=== PATIENT | female | born 1985 | race Caucasian/White ===

== ENCOUNTER 2018-03-11 21:05 | Inpatient (IN) | payer BC ==
[2018-03-11] MEDS ORDERED: LACTATED RINGERS 1,000 ML IV ONE (21:25)
[2018-03-11] MEDS ORDERED: CALCIUM CHLORIDE 500 MG in SODIUM CHLORIDE 0.9% 50 ML IVPB ONE (21:25)
[2018-03-11] MEDS ORDERED: MAGNESIUM SULFATE-WATER PMX 4 GM in WATER FOR INJECTION 1 50ML.BAG IVPB STA (21:25)
[2018-03-11] MEDS ORDERED: LACTATED RINGERS 1,000 ML IV SCH ×3 (21:30→22:45)
[2018-03-11] MEDS ORDERED: BETAMET ACET-BETAMETH SOD PHOS 6 MG/ML VIAL IM SCH (21:30)
[2018-03-11] MEDS ORDERED: MAGNESIUM SULFATE-WATER PMX 20 GM in WATER FOR INJECTION 1 500ML.BAG IV SCH (21:30)
[2018-03-11] MEDS ORDERED: AMPICILLIN 2,000 MG in SODIUM CHLORIDE 0.9% 100 ML IVPB STA (21:46)
[2018-03-11] MEDS ORDERED: CARBOPROST TROMETHAMINE 250 MCG/ML 1 ML AMP IM PRN (22:43)
[2018-03-11] MEDS ORDERED: LIDOCAINE 1% INJ 10MG/ML (20 ML MDV) SQ PRN (22:43)
[2018-03-11] MEDS ORDERED: TERBUTALINE 1 MG/ML VIAL SQ PRN (22:43)
[2018-03-11] MEDS ORDERED: METHYLERGONOVINE 0.2 MG/ML 1 ML AMP IM PRN (22:43)
[2018-03-11] MEDS ORDERED: OXYTOCIN 10 UNIT/ML 1 ML VIAL IM PRN (22:43)
[2018-03-11 22:55] LABS: Basophils % (A) 0 %; Eosinophils # (A) 0.1 k/uL (0-0.7); Eosinophils % (A) 1 %; HCT 37.5 % (34.0-46.0); HGB 12.3 gm/dL (11.4-16.0); Lymphocytes # (A) 2.4 k/uL (1.0-4.8); Lymphocytes % (A) 17 %; MCH 30.3 pg (25.0-35.0); MCHC 32.8 g/dL (31.0-37.0); MCV 92.5 fL (80.0-100.0); Mean Platelet Volume 7.9; Monocytes # (A) 0.6 k/uL (0-1.0); Monocytes % (A) 4 %; Neutrophils # (A) 10.8 k/uL (1.3-7.7); Neutrophils % (A) 76 %; Platelet Count 294 k/uL (150-450); RBC 4.06 m/uL (3.80-5.40); RDW 13.2 % (11.5-15.5); WBC 14.2 k/uL (3.8-10.6)
[2018-03-11] MEDS ORDERED: ROPIVACAINE 100 MG, fentaNYL (PF) 200 MCG in SODIUM CHLORIDE 0.9% 76 ML EPIDURAL ONE (23:45)
[2018-03-12] MEDS ORDERED: LIDOCAINE 0.5% (PF) 5 MG/ML (50 ML SDV) IM STA (00:43)
[2018-03-12] MEDS ORDERED: LIDOCAINE 1% INJ 10MG/ML (20 ML MDV) IM STA (00:43)
[2018-03-12] MEDS ORDERED: diphenhydrAMINE 50 MG CAP PO PRN (01:01)
[2018-03-12] MEDS ORDERED: HYDROcodone/APAP 7.5-325MG 1 EACH TAB PO PRN (01:01)
[2018-03-12] MEDS ORDERED: WITCH HAZEL 1 EACH MED..PAD TOPICAL PRN (01:01)
[2018-03-12] MEDS ORDERED: ZOLPIDEM 5 MG TAB PO PRN (01:01)
[2018-03-12] MEDS ORDERED: SIMETHICONE 80 MG CHEWABLE PO PRN (01:01)
[2018-03-12] MEDS ORDERED: diphenhydrAMINE 50 MG/ML 1 ML VIAL IVP PRN ×2 (01:01)
[2018-03-12] MEDS ORDERED: HYDROCORTISONE 2.5% RECTAL CREAM 30 GM TUBE RECTAL PRN (01:01)
[2018-03-12] MEDS ORDERED: diphenhydrAMINE 25 MG CAP PO PRN (01:01)
[2018-03-12] MEDS ORDERED: LANOLIN CREAM 5 GM TUBE TOPICAL PRN (01:01)
[2018-03-12] MEDS ORDERED: HYDROcodone/APAP 5-325MG 1 EACH TAB PO PRN (01:01)
[2018-03-12] MEDS ORDERED: ACETAMINOPHEN TAB 325 MG TAB PO PRN (01:01)
[2018-03-12] MEDS ORDERED: BENZOCAINE/MENTHOL SPRAY 1 GM/SPRAY AEROSOL TOPICAL PRN (01:01)
--- NOTE | 2018-03-12 01:01 | P.HPOB ---
History of Present Illness H&P Date: 03/11/18 Chief Complaint: IUP @ 30 3/7 weeks, PTL This is a 33-year-old 1 para 0 at 30-3/7 weeks that presented to labor and delivery with complaints of painful contractions. Patient stated she noted crampiness throughout the day and early in the evening they were starting to get worse therefore she came to triage. Patient denies loss of fluid or vaginal bleeding. She is uncomfortable and tearful with contractions. Patient has been receiving routine care since 7 weeks of gestation. Estimated date of confinement of May 17 is based on a 7 week ultrasound. Of note patient is a history of a LEEP and on 20 week ultrasound cervix is noted to be greater than 3 cm. On blood work patient had a blood type of O+, rubella immune, hepatitis B surface antigen negative, RPR negative, HIV negative she did undergo genetic screening with [employer] which revealed a normal male fetus. Review of Systems Constitutional: Denies chills, Denies fatigue, Denies fever Ears, nose, mouth and throat: Denies hoarseness Cardiovascular: Denies edema, Denies leg edema Respiratory: Denies cough, Denies dyspnea Gastrointestinal: Denies constipation, Denies diarrhea, Denies nausea, Denies vomiting Genitourinary: Reports Psychiatric: Denies anxiety, Denies depression Medications and Allergies Allergies Allergy/AdvReac Type Severity Reaction Status Date / Time sulfamethoxazole Allergy Rash/Hives Verified 03/11/18 21:25 [From Bactrim] trimethoprim [From Bactrim] Allergy Rash/Hives Verified 03/11/18 21:25 Exam Osteopathic Statement: *. No significant issues noted on an osteopathic structural exam other than those noted in the History and Physical/Consult. Intake and Output 03/11/18 03/11/18 03/11/18 06:59 14:59 22:59 Other: Weight 75.75 kg Targeted physical exam was completed on this date in general this is a well- developed well-nourished female, uncomfortable with contractions. Heart is noted to have regular rate and rhythm lungs are clear to auscultation bilaterally abdomen was noted gravid and appropriate for gestational age. heart tones are noted to be reassuring with moderate variability. Patient is known to be adalid every 5 minutes. On vaginal exam the cervix is noted to be fingertip/100%/-1 and vertex presentation confirmed by ultrasound. Assessment and Plan (1) 30 weeks gestation of Current Visit: Yes Status: Acute Code(s): Z3A.30 - 30 WEEKS GESTATION OF SNOMED Code(s): 95050720 (2) labor Current Visit: Yes Status: Acute Code(s): O60.00 - LABOR WITHOUT DELIVERY, UNSPECIFIED TRIMESTER SNOMED Code(s): 0520437 Plan: We'll start IV fluids, steroids, antibiotics, and magnesium sulfate. Given how uncomfortable she has we'll observe and stabilized patient before considering transfer given it is 1 hour to closest NICU facility. I feel she is close to delivery and we will monitor closely.
--- NOTE | 2018-03-12 01:01 | P.PROBDLV ---
Vaginal Delivery Note - . Vaginal Delivery Note: This is a 33-year-old 1 para 0 at 30-3/7 weeks that presented to labor and delivery with regular painful contractions. Estimated due date was May 17 based on a 7 week ultrasound. Patient was started on magnesium sulfate an attempt to stop the contractions this attempt failed patient was found be 4-5 cm therefore she was placed in the labor room and an epidural was performed by anesthesia. Patient progressed to complete amniotomy was performed and clear fluid was obtained. Patient began pushing and had a normal spontaneous vaginal delivery of a viable male at oh 36, weight of 3 lbs. 12 oz. with Apgars of 9 and 9 at one and 5 minutes respectfully. Afterwards the cord was doubly clamped and cut and the infant was handed off to the waiting pasteurizing machine operator given gestational age. The placenta was then spontaneously delivered intact with a three-vessel cord being noted. Inspection the patient's vaginal vault revealed bilateral lateral labial lacerations the left labia was noted to be bleeding therefore was repaired with 4-0 chromic in a usual fashion. The right labial laceration was hemostatic and was not repaired. The rest the vaginal vault was noted to be intact. The uterus was noted to be firm and below the umbilicus at this time. Estimated blood loss 200 mL Mother tolerated delivery well and is resting comfortably, infant is being watched closely by the efflux in the special care nursery and will be transferred to children[facility] when the transport team arise given gestational age
[2018-03-12] MEDS ORDERED: OXYTOCIN 20 UNITS/1000 ML NS 1,000 ML IV SCH (01:15)
[2018-03-12] MEDS ORDERED: AMPICILLIN 1,000 MG in SODIUM CHLORIDE 0.9% 50 ML IVPB SCH (02:00)
[2018-03-12] MEDS: IBUPROFEN 600 MG TAB PO PRN ×2 (02:46→09:49)
[2018-03-12 03:30] VITALS: BMI 24.6
[2018-03-12] MEDS ORDERED: SENNOSIDES-DOCUSATE SODIUM 1 EACH TAB PO SCH (08:00)
[2018-03-12 08:41] VITALS: RESP 18
--- NOTE | 2018-03-12 09:48 | P.DS ---
Providers Date of admission: 03/11/18 22:45 Expected date of discharge: 03/12/18 Attending physician: Dorothy Hewitt Primary care physician: Dorothy Hewitt - Discharge Diagnosis(es) (1) 30 weeks gestation of Current Visit: Yes Status: Acute (2) labor Current Visit: Yes Status: Acute (3) delivery Current Visit: Yes Status: Acute (4) Status post normal vaginal delivery Current Visit: Yes Status: Acute Hospital Course: This is a 33-year-old 1 para 0 that presented to labor and delivery last evening with complaints of regular painful contractions at 30-2/7 weeks of gestation. Patient's estimated due date was May 17 based on a seven-week ultrasound. Patient was noted to be in active labor and unstable for transfer therefore the decision was made to admit the patient to labor and delivery she was requesting epidural anesthesia for pain control. Patient quickly progressed to complete began pushing and had a normal spontaneous vaginal delivery of a viable male infant weight of 6 lbs. 12 oz. with Apgars of 9 and 9 at one and 5 minutes respectively. was noted have a spontaneous cry and was doing well up to transfer to [facility]. Patient's course has been uneventful so far. She is anxious to leave to go and see her . She is ambulating and voiding without difficulty. She is tolerating a regular diet without nausea or vomiting. She states her lochia is minimal. Her pain is well-controlled with oral medications. We will plan on discharge home this morning. Plan - Discharge Summary New Discharge Prescriptions: No Action No Known Home Medications Discharge Medication List No Known Home Medications 03/12/18 [History] Follow up Appointment(s)/Referral(s): Dorothy Hewitt DO [Primary Care Provider] - 1 Week Patient Instructions/Handouts: Expression, Collection and Storage of Breast Milk (DC), Vaginal Delivery (DC) Discharge Disposition: HOME SELF-CARE
[2018-03-12 16:33] VITALS: BP 110/62; PULSE 72; TEMP 98.2
== END 2018-03-12 16:00 | disposition home or self-care (01) | DRG 807 ==
LOC: FBPOP 21:05 → 4FBP 22:45
PROVIDERS: ADMIT Obstetrics & Gynecology Obstetrics; ATTEND Obstetrics & Gynecology Obstetrics
PROC: 00HU33Z Insertion of Infusion Device into Spinal Canal, Percutaneous Approach (ICD-10-PCS; 2018-03-11)
PROC: 3E0R3BZ Introduction of Anesthetic Agent into Spinal Canal, Percutaneous Approach (ICD-10-PCS; 2018-03-11)
PROC: 10E0XZZ Delivery of Products of Conception, External Approach (ICD-10-PCS; principal; 2018-03-12)
PROC: 0HQ9XZZ Repair Perineum Skin, External Approach (ICD-10-PCS; 2018-03-12)
DX: O60.14X0 Preterm labor third trimester with preterm delivery third trimester, not applicable or unspecified (principal); O70.0 First degree perineal laceration during delivery; Z37.0 Single live birth; Z3A.30 30 weeks gestation of pregnancy
CPT/HCPCS: 59025; 82731; 85025; 86850; 86900; 86901; 88307; 96365; 96367; 99215

== ENCOUNTER → 2020-03-13 | Outpatient (CLI) | payer BC | END | disposition home or self-care (01) | LOC: LABWHC1 12:40 | PROVIDERS: ATTEND Obstetrics & Gynecology Obstetrics | DX: Z20.828 Contact with and (suspected) exposure to other viral communicable diseases (principal) | CPT/HCPCS: U0003; C9803 ==

== ENCOUNTER 2020-04-18 05:57 | Inpatient (IN) | payer BC ==
[2020-04-18] MEDS ORDERED: METHYLERGONOVINE 0.2 MG/ML 1 ML AMP IM PRN (06:17)
[2020-04-18] MEDS ORDERED: OXYTOCIN 10 UNIT/ML 1 ML VIAL IM PRN (06:17)
[2020-04-18] MEDS ORDERED: LIDOCAINE 0.5% (PF) 5 MG/ML (50 ML SDV) SQ PRN (06:17)
[2020-04-18] MEDS ORDERED: TERBUTALINE 1 MG/ML VIAL SQ PRN (06:17)
[2020-04-18] MEDS ORDERED: CARBOPROST TROMETHAMINE 250 MCG/ML 1 ML AMP IM PRN (06:17)
[2020-04-18] MEDS ORDERED: OXYTOCIN 30 UNITS/500 ML NS 30 UNIT in SALINE 1 500ML.BAG IV SCH (06:30)
[2020-04-18] MEDS: LACTATED RINGERS 1,000 ML IV SCH ×5 (06:37→14:35)
[2020-04-18 06:55] LABS: Basophils # (A) 0.1 k/uL (0-0.2); Basophils % (A) 1 %; Eosinophils # (A) 0.3 k/uL (0-0.7); Eosinophils % (A) 3 %; HCT 36.5 % (34.0-46.0); HGB 12.3 gm/dL (11.4-16.0); Lymphocytes # (A) 2.1 k/uL (1.0-4.8); Lymphocytes % (A) 18 %; MCH 31.4 pg (25.0-35.0); MCHC 33.7 g/dL (31.0-37.0); MCV 93.1 fL (80.0-100.0); Mean Platelet Volume 7.8; Monocytes # (A) 0.5 k/uL (0-1.0); Monocytes % (A) 4 %; Neutrophils # (A) 8.4 k/uL (1.3-7.7); Neutrophils % (A) 73 %; Platelet Count 300 k/uL (150-450); RBC 3.92 m/uL (3.80-5.40); WBC 11.6 k/uL (3.8-10.6)
[2020-04-18] MEDS ORDERED: fentaNYL (PF) 50 MCG/ML 5 ML AMP ONE (08:31)
[2020-04-18] MEDS ORDERED: SODIUM CHLORIDE 0.9% 100 ML BAG ONE (08:31)
[2020-04-18] MEDS ORDERED: ROPIVACAINE 5MG/ML 20ML VIAL ONE (08:31)
[2020-04-18] MEDS: CALCIUM CARBONATE 500 MG CHEWABLE PO PRN ×2 (10:47→22:39)
[2020-04-18] MEDS ORDERED: ZOLPIDEM 5 MG TAB PO PRN (14:17)
[2020-04-18] MEDS ORDERED: diphenhydrAMINE 25 MG CAP PO PRN (14:17)
[2020-04-18] MEDS ORDERED: HYDROCORTISONE 2.5% RECTAL CREAM 30 GM TUBE RECTAL PRN (14:17)
[2020-04-18] MEDS ORDERED: diphenhydrAMINE 50 MG CAP PO PRN (14:17)
[2020-04-18] MEDS ORDERED: SIMETHICONE 80 MG CHEWABLE PO PRN (14:17)
[2020-04-18] MEDS ORDERED: diphenhydrAMINE 50 MG/ML 1 ML VIAL IVP PRN ×2 (14:17)
[2020-04-18] MEDS ORDERED: BENZOCAINE/MENTHOL SPRAY 1 GM/SPRAY AEROSOL TOPICAL PRN (14:17)
[2020-04-18] MEDS ORDERED: LANOLIN CREAM 5 GM TUBE TOPICAL PRN (14:17)
--- NOTE | 2020-04-18 14:21 | P.PROBDLV ---
Vaginal Delivery Note - . Vaginal Delivery Note: This is a 35-year-old 2 para 0101 that presented to labor and delivery at 38 and one sevenths weeks secondary to advanced cervical dilation and history of precipitous labor. Patient was admitted to labor and delivery and Pitocin induction of labor was begun. Patient quickly progressed to 5 cm and epidural was placed by the anesthesia department per patient request. Patient progressed to complete began pushing and had a normal spontaneous vaginal delivery of a viable female at 1351, weight of 6 pounds 12 ounces and Apgars of 8 and 9 at one and 5 minutes respectively. During pushing a clitoral laceration was noted therefore a midline episiotomy was performed before it could extend. Delayed the umbilical cord was doubly clamped and cut and the placenta was delivered spontaneously intact with a three-vessel cord being noted. On section the patient's vaginal vault bilateral labial lacerations were noted along with a midline episiotomy with no extension. The midline episiotomy was repaired in usual fashion with 3-0 Rapide. Hemostasis was appreciated after repair. On inspection of the labial lacerations no bleeding was noted therefore these were not repaired. The uterus is noted be firm and below the umbilicus at this time. The bladder was then drained for approximately 200 mL of clear yellow urine, all counts were noted be correct 2 at the end of the delivery Patient and infant tolerated delivery well and are resting comfortably
--- NOTE | 2020-04-18 14:25 | P.HPOB ---
History of Present Illness H&P Date: 04/18/20 Chief Complaint: IUP @ 38 1/7 weeks, advanced cervical dilation, h/o precip delivery This is a 35yo at 38 1/7 weeks that presents for induction of labor secondary to advanced cervical dilation and h/o precipitous delivery. she has been receiving routine care which has been essentially uncomplicated. she was on progesterone until 35 weeks of secondary to 31 week delivery with her first . she has struggled with pelvic pressure over the last few weeks. she notes good FM, occ ctx, and denies LOF. On bloodwork patient's blood type of O+, rubella status immune, RPR nonreactive, B surface antigen negative, HIV negative, she received the flu shot on 03/22. She did pass her 1 hour gestational diabetes screen, group beta strep culture was negative on 04/06. Review of Systems Constitutional: Denies chills, Denies fatigue, Denies fever Ears, nose, mouth and throat: Denies headache Cardiovascular: Reports leg edema Respiratory: Denies dyspnea Gastrointestinal: Denies nausea, Denies vomiting Genitourinary: Reports Past Medical History Past Medical History: No Reported History History of Any Multi-Drug Resistant Organisms: None Reported Additional Past Surgical History / Comment(s): Cervical Leep procedure Past Anesthesia/Blood Transfusion Reactions: No Reported Reaction Past Psychological History: No Psychological Hx Reported Smoking Status: Never smoker Past Alcohol Use History: None Reported Past Drug Use History: None Reported - Past Family History Father History Unknown: Yes Additional Family Medical History / Comment(s): pt adopted Medications and Allergies Home Medications Medication Instructions Recorded Confirmed Type Loratadine [Claritin] 10 mg PO DAILY 04/18/20 04/18/20 History Pnv,Calcium 72/Iron/Folic Acid 1 each PO DAILY 04/18/20 04/18/20 History [ Plus Tablet] Allergies Allergy/AdvReac Type Severity Reaction Status Date / Time sulfamethoxazole Allergy Rash/Hives Verified 04/18/20 06:14 [From Bactrim] trimethoprim [From Bactrim] Allergy Rash/Hives Verified 04/18/20 06:14 Exam Osteopathic Statement: *. No significant issues noted on an osteopathic structural exam other than those noted in the History and Physical/Consult. 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 Results Result Diagrams: 04/18/20 06:30 Abnormal Lab Results - Last 24 Hours (Table) 04/18/20 Range/Units 06:30 WBC 11.6 H (3.8-10.6) k/uL Neutrophils # 8.4 H (1.3-7.7) k/uL Assessment and Plan (1) Term Current Visit: Yes Status: Acute Code(s): Z34.90 - ENCNTR FOR SUPRVSN OF NORMAL , UNSP, UNSP TRIMESTER SNOMED Code(s): 50110864 Plan: Given patient's precipitous delivery with her last and advanced cervical dilation it was elected to deliver electively at 38 weeks. Patient has been noting extreme pelvic pressure over the last few weeks in addition. Patient is admitted to labor and delivery and Pitocin induction of labor is begu n per hospital protocol. Epidural and Stadol are discussed with patient and she elects epidural when she gets uncomfortable. Anesthesia will be notified at that time. We will monitor closely anticipate spontaneous vaginal delivery later today.
[2020-04-18] MEDS ORDERED: OXYTOCIN 20 UNITS/1000 ML NS 1,000 ML IV SCH (14:30)
[2020-04-18 15:40] VITALS: RESP 16
[2020-04-18] MEDS: IBUPROFEN 600 MG TAB PO PRN (17:52)
[2020-04-18] MEDS: ACETAMINOPHEN TAB 325 MG TAB PO PRN (20:27)
[2020-04-18] MEDS: SENNOSIDES-DOCUSATE SODIUM 1 EACH TAB PO SCH (22:39)
[2020-04-19] MEDS: IBUPROFEN 600 MG TAB PO PRN ×2 (03:08→10:05)
[2020-04-19] MEDS: ACETAMINOPHEN TAB 325 MG TAB PO PRN (06:18)
[2020-04-19 06:57] LABS: Basophils % (A) 0 %; Eosinophils # (A) 0.1 k/uL (0-0.7); Eosinophils % (A) 1 %; HCT 33.6 % (34.0-46.0); HGB 11.3 gm/dL (11.4-16.0); Lymphocytes # (A) 1.8 k/uL (1.0-4.8); Lymphocytes % (A) 13 %; MCH 30.9 pg (25.0-35.0); MCHC 33.5 g/dL (31.0-37.0); MCV 92.4 fL (80.0-100.0); Mean Platelet Volume 7.5; Monocytes # (A) 0.4 k/uL (0-1.0); Monocytes % (A) 3 %; Neutrophils # (A) 11.6 k/uL (1.3-7.7); Neutrophils % (A) 82 %; Platelet Count 278 k/uL (150-450); RBC 3.64 m/uL (3.80-5.40); WBC 14.1 k/uL (3.8-10.6)
--- NOTE | 2020-04-19 08:27 | P.DS ---
Providers Date of admission: 04/18/20 05:57 Expected date of discharge: 04/19/20 Attending physician: Dorothy Hewitt Primary care physician: Stated None - Discharge Diagnosis(es) (1) Term Current Visit: Yes Status: Acute (2) Status post normal vaginal delivery Current Visit: No Status: Acute Hospital Course: This is a 35-year-old that presented to labor and delivery at 38 and one sevenths weeks for scheduled induction of labor secondary to advanced cervical dilation and history of precipitous delivery. Patient had been struggling with increasing pelvic pain in addition. Patient was admitted to labor and delivery noted to be 4-5 cm. Patient underwent amniotomy and clear fluid was obtained. Upon admission Pitocin was started per hospital protocol. Patient quickly became uncomfortable and was noted to be 5+ centimeters. Anesthesia was called and epidural was placed without difficulty. Patient progressed to complete began pushing a clitoral laceration was noted therefore a midline episiotomy was performed no extension was noted after delivery. Patient delivered a viable female infant at 1351, weight of 6 lbs. 12 oz. and Apgars of 9 and 9 at one and 5 minutes respectively. Patient's course has been uneventful. On this day #1 she is ambulating and voiding without difficulty. She is tolerating a regular diet without nausea or vomiting. She is breast-feeding. She would like discharge home at 24 hours. Patient Condition at Discharge: Good Plan - Discharge Summary New Discharge Prescriptions: No Action Pnv,Calcium 72/Iron/Folic Acid [ Plus Tablet] 1 each PO DAILY Loratadine [Claritin] 10 mg PO DAILY Discharge Medication List Loratadine [Claritin] 10 mg PO DAILY 04/18/20 [History] Pnv,Calcium 72/Iron/Folic Acid [ Plus Tablet] 1 each PO DAILY 04/18/20 [History] Follow up Appointment(s)/Referral(s): Dorothy Hewitt DO [Doctor of Osteopathic Medicine] - 4 Weeks Patient Instructions/Handouts: Vaginal Delivery (GEN), Vaginal Delivery (DC) Discharge Disposition: HOME SELF-CARE
[2020-04-19] MEDS ORDERED: PRENATAL VIT-IRON-FOLIC ACID 1 EACH CAP PO SCH (09:00)
[2020-04-19] MEDS: SENNOSIDES-DOCUSATE SODIUM 1 EACH TAB PO SCH (10:05)
[2020-04-19 10:11] VITALS: BP 112/70; PULSE 79; TEMP 98.9
== END 2020-04-19 15:00 | disposition home or self-care (01) | DRG 807 ==
LOC: 4FBP 05:57
PROVIDERS: ADMIT Obstetrics & Gynecology Obstetrics; ATTEND Obstetrics & Gynecology Obstetrics
PROC: 10E0XZZ Delivery of Products of Conception, External Approach (ICD-10-PCS; principal; 2020-04-18)
PROC: 3E0R3BZ Introduction of Anesthetic Agent into Spinal Canal, Percutaneous Approach (ICD-10-PCS; principal; 2020-04-18)
PROC: 00HU33Z Insertion of Infusion Device into Spinal Canal, Percutaneous Approach (ICD-10-PCS; principal; 2020-04-18)
PROC: 0W8NXZZ Division of Female Perineum, External Approach (ICD-10-PCS; principal; 2020-04-18)
PROC: 3E033VJ Introduction of Other Hormone into Peripheral Vein, Percutaneous Approach (ICD-10-PCS; principal; 2020-04-18)
DX: O99.62 Diseases of the digestive system complicating childbirth (principal); Z37.0 Single live birth; K21.9 Gastro-esophageal reflux disease without esophagitis; O70.0 First degree perineal laceration during delivery; Z3A.38 38 weeks gestation of pregnancy; Z79.899 Other long term (current) drug therapy; Z88.1 Allergy status to other antibiotic agents; Z88.2 Allergy status to sulfonamides
CPT/HCPCS: 85025; 86850; 86900; 86901